=== PATIENT | male | born 1985 | race Caucasian/White ===

== ENCOUNTER 2024-03-27 16:54 | Emergency (ER) | payer OTHER ==
[~2024-03-27] VITALS: Ht 182.9 cm; Wt 95.2 kg
== END 2024-03-27 17:13 | disposition home or self-care (01) ==
LOC: ER 16:54
DX: S60.352A Superficial foreign body of left thumb, initial encounter (principal); W45.8XXA Other foreign body or object entering through skin, initial encounter; Z88.0 Allergy status to penicillin
CPT/HCPCS: 10120; 99282-25

== ENCOUNTER 2025-01-20 13:53 | Emergency (ER) | payer OTHER ==
[~2025-01-20] VITALS: Ht 182.9 cm; Wt 108.9 kg
[2025-01-20] MEDS ORDERED: OxyCODONE 5 mg/Acetamin 325 mg TABLET PO ONE (14:35)
[2025-01-20] MEDS ORDERED: NAPR500 PO (15:45)
[2025-01-20] MEDS ORDERED: HYDR1TAB94 PO (15:45)
== END 2025-01-20 16:21 | disposition home or self-care (01) ==
LOC: ER 13:53
DX: S70.02XA Contusion of left hip, initial encounter (principal); S50.312A Abrasion of left elbow, initial encounter; S80.212A Abrasion, left knee, initial encounter; Z88.0 Allergy status to penicillin; Z88.1 Allergy status to other antibiotic agents; W18.30XA Fall on same level, unspecified, initial encounter; Y93.51 Activity, roller skating (inline) and skateboarding
CPT/HCPCS: 72192; 73502; 99284-25; A9270